=== PATIENT | male | born 1990 | race American Indian/Alaskan Native ===

== ENCOUNTER 2022-02-09 06:48 | Emergency (ER) | payer SELFPAY ==
[2022-02-09 07:00] VITALS: BP 127/66
[2022-02-09] MEDS ORDERED: dexAMETHasone 4 MG/ML VIAL IM ONE (08:23)
[2022-02-09] MEDS ORDERED: IBUPROFEN 800 MG TAB PO ONE (08:23)
[2022-02-09] MEDS ORDERED: CYCLOBENZAPRINE 10 MG TAB PO ONE (08:23)
--- NOTE | 2022-02-09 08:31 | Emergency Department Report ---
ED Back Pain/Injury HPI - General Chief Complaint: Back Pain/Injury Stated Complaint: LOWER BACK PAIN Time Seen by Provider: 02/09/22 07:56 Source: patient, family Limitations: No Limitations - Related Data Previous Rx's Medication Instructions Recorded Last Taken Type Cyclobenzaprine [Flexeril] 10 mg PO TID PRN #10 tablet 02/09/22 Unknown Rx Ibuprofen [Motrin] 800 mg PO Q8HR PRN #30 tablet 02/09/22 Unknown Rx predniSONE [Deltasone] 20 mg PO DAILY #5 tablet 02/09/22 Unknown Rx Allergies Allergy/AdvReac Type Severity Reaction Status Date / Time No Known Allergies Allergy Verified 02/09/22 06:56 ED Review of Systems ROS: Stated complaint: LOWER BACK PAIN Other details as noted in HPI ED Past Medical Hx - Medications Home Medications: Home Medications Medication Instructions Recorded Confirmed Last Taken Type Cyclobenzaprine [Flexeril] 10 mg PO TID PRN #10 tablet 02/09/22 Unknown Rx Ibuprofen [Motrin] 800 mg PO Q8HR PRN #30 tablet 02/09/22 Unknown Rx predniSONE [Deltasone] 20 mg PO DAILY #5 tablet 02/09/22 Unknown Rx ED Physical Exam - General Limitations: No Limitations ED Course Vital Signs 02/09/22 07:00 Temperature 98.6 F Pulse Rate 84 Respiratory 18 Rate Blood Pressure 127/66 [Right] O2 Sat by Pulse 99 Oximetry Critical care attestation.: If time is entered above; I have spent that time in minutes in the direct care of this critically ill patient, excluding procedure time. ED Disposition Clinical Impression: Musculoskeletal pain Back pain Qualifiers: Back pain location: low back pain Chronicity: acute Sciatica presence: without sciatica Disposition: 01 HOME / SELF CARE / HOMELESS Is pt being admited?: No Does the pt Need Aspirin: No Condition: Stable Instructions: Musculoskeletal Pain Additional Instructions: Medications as ordered today warm baths with Epson salts Stretching will help the pain Proper body mechanics Follow-up with PCP. Referral below Referrals: RAMA KRISHNAN MD [Staff Physician] - 3-5 Days Forms: Work/School Release Form(ED) Time of Disposition: 08:29
== END 2022-02-09 09:18 | disposition home or self-care (01) ==
LOC: EDBD 06:48 → ED 06:48
DX: M54.50 Low back pain, unspecified (principal); Z53.21 Procedure and treatment not carried out due to patient leaving prior to being seen by health care provider
CPT/HCPCS: 96372; J1100; 99282